=== PATIENT | male | born 1985 | race Hispanic/Latino ===

== ENCOUNTER 2018-09-27 20:24 | Emergency (ER) | payer OTHER ==
[2018-09-27 21:39] VITALS: BP 136/82; PULSE 77; RESP 16; TEMP 97.9; O2SAT 97; BMI 27.3
--- NOTE | 2018-09-27 23:01 | ED PDOC ---
HPI: Skin/Bite Injury Time Seen by Provider: 09/27/18 21:30 Chief Complaint (Nursing): Abnormal Skin Integrity Chief Complaint (Provider): Lip laceration History Per: Patient History/Exam Limitations: no limitations Past Medical History Vital Signs: Last Vital Signs Temp 97.9 F 09/27/18 21:39 Pulse 77 09/27/18 21:39 Resp 16 09/27/18 21:39 BP 136/82 09/27/18 21:39 Pulse Ox 97 09/27/18 21:39 - ECG O2 Sat by Pulse Oximetry: 97 Medical Decision Making Medical Decision Making: monocryl 6-0 Disposition - Clinical Impression Clinical Impression: Lip laceration - Patient ED Disposition Is Patient to be Admitted: No Doctor Will See Patient In The: Office Counseled Patient/Family Regarding: Studies Performed, Diagnosis, Need For Followup, Rx Given - Disposition Disposition: Routine/Home Disposition Time: 23:01 Condition: STABLE Instructions: Laceration Repair With Stitches (DC), Wound Care Forms: [email or web address] (Macedonian)
== END 2018-09-27 23:05 | disposition home or self-care (01) ==
LOC: H.ER 20:24
DX: S01.511A Laceration without foreign body of lip, initial encounter (principal); W22.8XXA Striking against or struck by other objects, initial encounter; Y92.39 Other specified sports and athletic area as the place of occurrence of the external cause